=== PATIENT | female | born 1965 | race Caucasian/White ===

== ENCOUNTER 2024-02-15 07:43 | Outpatient (CLI) | payer OTHER | END 2024-02-15 07:44 | disposition home or self-care (01) | LOC: CSHMRI 07:43 | PROVIDERS: ATTEND Student in an Organized Health Care Education/Training Program | DX: R29.898 Other symptoms and signs involving the musculoskeletal system (principal); M51.369 Other intervertebral disc degeneration, lumbar region without mention of lumbar back pain or lower extremity pain | CPT/HCPCS: 72148 ==